=== PATIENT | male | born 1970 | race Caucasian/White ===

== ENCOUNTER 2016-06-24 10:15 | Emergency (ER) | payer MEDICARE, OTHER ==
[2016-06-24 10:22] VITALS: BP 135/78; PULSE 95; RESP 18; TEMP 97.7
[2016-06-24] MEDS ORDERED: PROPARACAINE 0.5% OPHTH DROPS 15 ML BTL LEFT EYE STA (10:32)
--- NOTE | 2016-06-24 11:21 | ED ---
General Adult HPI - General Chief complaint: Eye Problems Stated complaint: FB in eye Time Seen by Provider: 06/24/16 10:32 Source: patient, RN notes reviewed Mode of arrival: ambulatory Limitations: no limitations - History of Present Illness Initial comments: Patient is a 45-year-old male who presents emergency room today with a chief complaint of foreign body sensation to the left eye. He does admit that he was working yesterday. Denies any significant injury or trauma to time. Please that when he went home to shower he thinks something fell into his eye at that time did not feel until later in the night. He does admit to some irritation to the left eye can see a small black dot to the lateral aspect. He denies any visual changes. He states his tetanus is up-to-date. Patient denies any recent fever, chills, shortness of breath, chest pain, back pain, abdominal pain, nausea or vomiting, numbness or tingling, dysuria or hematuria, constipation or diarrhea, headaches or visual changes, or any other complaints. - Related Data Home Medications Medication Instructions Recorded Confirmed ALPRAZolam [Xanax] 0.5 mg PO DAILY PRN 06/24/16 06/24/16 HYDROcodone/APAP 10-325MG [[place] 1 tab PO Q6H PRN 06/24/16 06/24/16 10-325] Minocycline HCl [Minocin] 100 mg PO HS 06/24/16 06/24/16 Morphine Sulfate ER [Ms Contin 15 mg PO Q8H PRN 06/24/16 06/24/16 15Mg] Morphine Sulfate ER [Ms Contin 60 mg PO Q8H PRN 06/24/16 06/24/16 60Mg] Omeprazole [PriLOSEC] 20 mg PO AC-BRKFST 06/24/16 06/24/16 Ranitidine HCl [Zantac] 150 mg PO DAILY PRN 06/24/16 06/24/16 amLODIPine [Norvasc] 5 mg PO DAILY 06/24/16 06/24/16 Previous Rx's Medication Instructions Recorded Tobramycin 0.3% Ophth Soln [Tobrex 1 - 2 drop LEFT EYE QID 7 Days 06/24/16 0.3% Ophth Soln] Allergies Allergy/AdvReac Type Severity Reaction Status Date / Time chlorpromazine Allergy Unknown Verified 06/24/16 10:22 [From Thorazine] Review of Systems ROS Statement: Those systems with pertinent positive or pertinent negative responses have been documented in the HPI. ROS Other: All systems not noted in ROS Statement are negative. Past Medical History Past Medical History: Cancer Additional Past Medical History / Comment(s): bone ca History of Any Multi-Drug Resistant Organisms: None Reported Additional Past Surgical History / Comment(s): ribs removed/ lobectomy and muscles at ribs removed from ca Past Psychological History: Anxiety Smoking Status: Never smoker Past Alcohol Use History: Rare Past Drug Use History: None Reported General Exam - General Exam Comments Initial Comments: General: The patient is awake and alert, in no distress, and does not appear acutely ill. Eye: Pupils are equal, round and reactive to light, extra-ocular movements are intact. No nystagmus. There is normal conjunctiva bilaterally. No signs of icterus. Small foreign body located at the 3 o'clock position Ears, nose, mouth and throat: There are moist mucous membranes and no oral lesions. Neck: The neck is supple, there is no tenderness or JVD. Cardiovascular: There is a regular rate and rhythm. No murmur, rub or gallop is appreciated. Respiratory: Lungs are clear to auscultation, respirations are non-labored, breath sounds are equal. No wheezes, stridor, rales, or rhonchi. Musculoskeletal: Normal ROM, no tenderness. Strength 5/5. Sensation intact. Pulses equal bilaterally 2+. Neurological: A&O x 3. CN II-XII intact, There are no obvious motor or sensory deficits. Coordination appears grossly intact. Speech is normal. Skin: Skin is warm and dry and no rashes or lesions are noted. Psychiatric: Cooperative, appropriate mood & affect, normal judgment. Limitations: no limitations Course Vital Signs 06/24/16 10:19 Temperature 97.7 F Pulse Rate 95 Respiratory 18 Rate Blood Pressure 135/78 O2 Sat by Pulse 100 Oximetry Procedures - Procedures Initial comment: Patient's left eye was anesthetized locally with proparacaine. This did relieve his symptoms. Comes while used to remove foreign body which was able to take a small metallic object. Was rechecked with Wood's lamp and no foreign body remaining. Small uptake seen at the area of foreign body. Disposition Clinical Impression: Corneal foreign body Disposition: HOME SELF-CARE Condition: Good Instructions: Eye Foreign Body (ED) Additional Instructions: Please use eyedrops as prescribed. Please follow-up with processes chemical design engineer in 2 days of symptoms have not completely resolved as discussed. Please return here to emergency room if any symptoms increase or worsen or for any other concerns. Prescriptions: Tobramycin 0.3% Ophth Soln [Tobrex 0.3% Ophth Soln] 1 - 2 drop LEFT EYE QID 7 Days Time of Disposition: 11:20
[2016-06-24] MEDS ORDERED: PROPARACAINE 0.5% OPHTH DROPS 15 ML BTL ONE (13:40)
== END 2016-06-24 11:33 | disposition home or self-care (01) ==
LOC: EC 10:15
DX: T15.02XA Foreign body in cornea, left eye, initial encounter (principal); Z79.899 Other long term (current) drug therapy; Z88.8 Allergy status to other drugs, medicaments and biological substances; Z85.830 Personal history of malignant neoplasm of bone; Y92.002 Bathroom of unspecified non-institutional (private) residence as the place of occurrence of the external cause
CPT/HCPCS: 99283

== ENCOUNTER 2016-06-28 09:38 | Emergency (ER) | payer MEDICARE, OTHER ==
[2016-06-28 09:49] VITALS: BP 126/84; PULSE 108; RESP 20; TEMP 99.3
[2016-06-28] MEDS ORDERED: PROPARACAINE 0.5% OPHTH DROPS 15 ML BTL LEFT EYE STA (09:55)
--- NOTE | 2016-06-28 10:08 | ED ---
Eye Problem HPI - General Chief complaint: Eye Problems Stated complaint: Eye Problems Time Seen by Provider: 06/28/16 09:53 Source: patient, RN notes reviewed Mode of arrival: ambulatory Limitations: no limitations - History of Present Illness Initial comments: 45-year-old male presents emergency Department with chief complaint of left eye foreign body. Patient states that he woke up with this morning. Patient states he wants to know issues. Patient states he was just seen here 2 days ago for similar issues. Patient had foreign body removed at that time. Patient 's tetanus is up-to-date last year. Patient states that his eyes is very irritated denies any blurred vision. Patient states he has not been working around anything since he had his foreign-body removed a few days ago. Patient is currently using Tobrex eye drops. - Related Data Home Medications Medication Instructions Recorded Confirmed ALPRAZolam [Xanax] 0.5 mg PO DAILY PRN 06/24/16 06/24/16 HYDROcodone/APAP 10-325MG [[place] 1 tab PO Q6H PRN 06/24/16 06/24/16 10-325] Minocycline HCl [Minocin] 100 mg PO HS 06/24/16 06/24/16 Morphine Sulfate ER [Ms Contin 15 mg PO Q8H PRN 06/24/16 06/24/16 15Mg] Morphine Sulfate ER [Ms Contin 60 mg PO Q8H PRN 06/24/16 06/24/16 60Mg] Omeprazole [PriLOSEC] 20 mg PO AC-BRKFST 06/24/16 06/24/16 Ranitidine HCl [Zantac] 150 mg PO DAILY PRN 06/24/16 06/24/16 amLODIPine [Norvasc] 5 mg PO DAILY 06/24/16 06/24/16 Previous Rx's Medication Instructions Recorded Tobramycin 0.3% Ophth Soln [Tobrex 1 - 2 drop LEFT EYE QID 7 Days 06/24/16 0.3% Ophth Soln] Allergies Allergy/AdvReac Type Severity Reaction Status Date / Time chlorpromazine AdvReac Unknown Verified 06/24/16 11:20 [From Thorazine] Review of Systems ROS Statement: Those systems with pertinent positive or pertinent negative responses have been documented in the HPI. ROS Other: All systems not noted in ROS Statement are negative. Past Medical History Past Medical History: Cancer Additional Past Medical History / Comment(s): bone ca History of Any Multi-Drug Resistant Organisms: None Reported Additional Past Surgical History / Comment(s): ribs removed/ lobectomy and muscles at ribs removed from ca Past Psychological History: Anxiety Smoking Status: Never smoker Past Alcohol Use History: Rare Past Drug Use History: None Reported General Exam Limitations: no limitations General appearance: alert, in no apparent distress Head exam: Present: atraumatic, normocephalic, normal inspection Eye exam: Present: PERRL, EOMI, other (Patient had complete relief of his symptoms with 2 drops of proparacaine. Foreign body was removed using a sterile Q-tip. Florescien dye and Wood's lamp were used to evaluate the left eye there is no other corneal abrasions). Absent: normal appearance (large foreign body noted in the left I 3 o'clock position), scleral icterus, conjunctival injection, periorbital swelling ENT exam: Present: normal exam, normal oropharynx, mucous membranes moist Neck exam: Present: normal inspection. Absent: tenderness, meningismus, lymphadenopathy Respiratory exam: Present: normal lung sounds bilaterally. Absent: respiratory distress, wheezes, rales, rhonchi, stridor Cardiovascular Exam: Present: regular rate, normal rhythm, normal heart sounds. Absent: systolic murmur, diastolic murmur, rubs, gallop, clicks Course Vital Signs 06/28/16 09:46 Temperature 99.3 F Pulse Rate 108 H Respiratory 20 Rate Blood Pressure 126/84 O2 Sat by Pulse 98 Oximetry Procedures - Procedures Initial comment: Left eye foreign body to drops of proparacaine were used to anesthetize left eye Q-tip was used to remove the foreign body there is a small corneal defect in the 3 o'clock position patient tolerated well no compilations. Medical Decision Making - Medical Decision Making 45-year-old male had left I foreign body removed patient has a corneal abrasion. Patient will continue Tobrex eyedrops as he recently started these. Disposition Clinical Impression: Corneal foreign body Disposition: HOME SELF-CARE Condition: Stable Instructions: Eye Foreign Body (ED) Additional Instructions: Continue use of TobraDex eyedrops. Please return to the Emergency Department if symptoms worsen or any other concerns. Referrals: Ray Alarcon MD [Primary Care Provider] - 1-2 days Praveen Branch MD [STAFF PHYSICIAN] - 1-2 days Time of Disposition: 10:08
== END 2016-06-28 10:20 | disposition home or self-care (01) ==
LOC: EC 09:38
DX: T15.02XA Foreign body in cornea, left eye, initial encounter (principal); Z85.830 Personal history of malignant neoplasm of bone; Z88.8 Allergy status to other drugs, medicaments and biological substances; Z79.899 Other long term (current) drug therapy
CPT/HCPCS: 65220; 99283

== ENCOUNTER → 2017-08-01 | Outpatient (CLI) | payer MEDICARE ==
--- NOTE | 2017-08-01 14:34 | XR ---
EXAM TYPE: LUMBAR SPINE X RAY SERIES COMPARISON: NONE HISTORY: Back pain TECHNIQUE: 6 views are submitted including flexion-extension lateral views. FINDINGS: Alignment is anatomic. The pedicles are intact. The transverse processes are intact. There is no s pondylolysis or spondylolisthesis. There is facet arthropathy L5-S1 with multilevel moderate degener ative disc disease. Alignment appears stable in flexion and extension. IMPRESSION: 1. Multilevel degenerative disc disease.
--- NOTE | 2017-08-01 17:05 | MR ---
EXAMINATION TYPE: MR lumbar spine wo con DATE OF EXAM: 08/01/2017 COMPARISON: NONE HISTORY: LBP x several years, no trauma/surgery CONTRAST: 0 mL intravenous Gadavist. TECHNIQUE: Multiplanar, multisequence images of the lumbar spine were acquired. FINDINGS: L5-S1: Mild disc bulging is present. This has contact with the anterior thecal sac. Distortion is not evident. No nerve root compression is evident. No AP spinal canal stenosis is present. Minimal facet hypertrophy is present. Neural foramen are patent. Disc height is preserved. L4-L5: No significant disc bulge or disc herniation. No spinal canal stenosis. No foraminal stenosi s. Mild facet hypertrophy is present.. L3-L4: Right paracentral to right lateral disc bulge is present with mild anterior thecal sac ca kermit. This extends into the foramen. Stenosis is not evident. Tiny left paracentral to left lateral d isc bulge is also present. No AP spinal canal stenosis or foraminal stenosis is present. No spinal c anal stenosis. No foraminal stenosis. . L2-L3: No significant disc bulge or disc herniation. No spinal canal stenosis. No foraminal stenosi s. L1-L2: No significant disc bulge or disc herniation. No spinal canal stenosis. No foraminal stenosi s. T12-L1: No significant disc bulge or disc herniation. No spinal canal stenosis. No foraminal stenos is. IMPRESSION: 1. Moderate size focal disc bulging right paracentral to right lateral direction at the L3-4 level more s mild anterior thecal sac compression. Foraminal stenosis however is not evident. 2. Tiny left paracentral to left lateral disc bulge is present at the L3-4 level without thecal sac o r exiting nerve root compression. 3. Minimal disc bulge L5-S1 which has contact but no distortion of the anterior thecal sac.
== END ==
LOC: RADMRIMAIN 13:57
PROVIDERS: ATTEND Anesthesiology Pain Medicine
DX: M51.36 Other intervertebral disc degeneration, lumbar region (principal); M51.26 Other intervertebral disc displacement, lumbar region; Z79.891 Long term (current) use of opiate analgesic; M47.816 Spondylosis without myelopathy or radiculopathy, lumbar region
CPT/HCPCS: 72114; 72148

== ENCOUNTER 2018-01-22 11:01 | Emergency (ER) | payer MEDICARE ==
[2018-01-22] MEDS ORDERED: SODIUM CHLORIDE 0.9% 1,000 ML IV STA (11:41)
[2018-01-22 12:31] LABS: Basophils % (A) 0 %; Eosinophils # (A) 0.2 k/uL (0-0.7); Eosinophils % (A) 2 %; HCT 40.2 % (39.0-53.0); HGB 13.7 gm/dL (13.0-17.5); Lymphocytes # (A) 1.7 k/uL (1.0-4.8); Lymphocytes % (A) 15 %; MCH 30.4 pg (25.0-35.0); MCHC 34.1 g/dL (31.0-37.0); MCV 89.2 fL (80.0-100.0); Mean Platelet Volume 7.3; Monocytes # (A) 0.8 k/uL (0-1.0); Monocytes % (A) 7 %; Neutrophils # (A) 8.7 k/uL (1.3-7.7); Neutrophils % (A) 75 %; Platelet Count 327 k/uL (150-450); RDW 12.8 % (11.5-15.5); WBC 11.6 k/uL (3.8-10.6)
--- NOTE | 2018-01-22 12:31 | ED ---
General Adult HPI - General Chief complaint: Chest Pain Stated complaint: chest pain, SOB Source: patient, RN notes reviewed, old records reviewed Mode of arrival: wheelchair Limitations: no limitations - History of Present Illness Initial comments: 47-year-old male patient with past medical history of chronic lumbar back pain, Torres sarcoma at age 17 presents to ED with back pain and right-sided pleuritic chest pain. Patient states that last night at approximately 8 PM when he stood up and bent over and felt pain in thoracic spine. Patient states that this pain is similar to pain in his back before, however it is located higher than the typical lumbar back pain experiences. Patient woke up this morning with right-sided pleuritic chest pain. Patient is additionally having shortness of breath. Patient denies any substernal chest pain. Pt states that the pleuritic chest pain is located approximately 4 cm below the right nipple at the anterior axillary line. Patient denies recent travel, history of thromboembolism's, cardiac history, nausea vomiting diarrhea, diaphoresis. Systemic: Pt denies fatigue, myalgia, fever/chills, rash. Pt denies weakness, night sweats, weight loss. Neuro: Pt denies headache, visual disturbances, syncope or pre-syncope. Denies new onset paresthesias. HEENT: Pt denies ocular discharge or irritation, otalgia, rhinorrhea, pharyngitis or notable lymphadenopathy. Abdominal/GI: Pt denies abdominal pain, n/v/d. : Pt denies dysuria, burning w/ urination, frequency/urgency. Denies new onset urinary or bowel incontinence. MSK: Pt denies myalgia, loss of strength or function in extremities. - Related Data Home Medications Medication Instructions Recorded Confirmed Minocycline HCl [Minocin] 100 mg PO HS 06/24/16 01/22/18 Morphine Sulfate ER [Ms Contin 60 mg PO TID 06/24/16 01/22/18 60Mg] Omeprazole [PriLOSEC] 20 mg PO AC-BRKFST 06/24/16 01/22/18 amLODIPine [Norvasc] 5 mg PO DAILY 06/24/16 01/22/18 Cyclobenzaprine [Flexeril] 10 mg PO TID PRN 01/22/18 01/22/18 Hydrocodone/Acetaminophen [[place] 1 tab PO Q6H PRN 01/22/18 01/22/18 10325] Previous Rx's Medication Instructions Recorded Azithromycin [Zithromax Z-pack] 0 mg PO DIRECTED #6 tab 01/22/18 Allergies Allergy/AdvReac Type Severity Reaction Status Date / Time chlorpromazine AdvReac "FELT LIKE Verified 01/22/18 11:59 [From Thorazine] I WAS ON FIRE" Review of Systems ROS Statement: Those systems with pertinent positive or pertinent negative responses have been documented in the HPI. ROS Other: All systems not noted in ROS Statement are negative. Past Medical History Past Medical History: Cancer Additional Past Medical History / Comment(s): bone ca History of Any Multi-Drug Resistant Organisms: None Reported Additional Past Surgical History / Comment(s): ribs removed/ lobectomy and muscles at ribs removed from ca Past Psychological History: Anxiety Smoking Status: Never smoker Past Alcohol Use History: Rare Past Drug Use History: None Reported General Exam - General Exam Comments Initial Comments: Constitutional: NAD, AOX3, Pt has pleasant affect. HEENT: NC/AT, trachea midline, neck supple, no lymphadenopathy. Posterior pharynx non erythematous, without exudates. External ears appear normal, without discharge. Mucous membranes moist. Eyes PERRLA, EOM intact. There is no scleral icterus. No pallor noted. Cardiopulmonary: RRR, no murmurs, rubs or gallops, no JVD noted. Lungs CTAB in anterior and posterior soler. No peripheral edema. Abdominal exam: Abdomen soft and non-distended. Abdomen non-tender to palpation in all 4 quadrants. Bowel sounds active in LLQ. No hepatosplenomegaly. No ecchymosis, cullens and paez solis sign negative. Neuro: CN II-XII intact. No Focal deficit, no facial droop. MSK: Full active ROM in upper and lower extremities. Pt ambulatory. Full sensation in active and lower extremities. Radial pulse +2 bilaterally, posterior tibialis pulse +2 bilaterally. Homans sign negative bilaterally. Patient has mild midline thoracic spine tenderness. Psoas strength 5 out of 5, quadriceps strength 5 out of 5 both bilaterally. Patient heel toe walking intact. Patient denies new onset loss of bowel or bladder control. Achilles and patellar reflex 2 out of 4 bilaterally. 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 MSK exam displayed Full active ROM in upper and lower extremities. Pt ambulatory. Full sensation in active and lower extremities. Radial pulse +2 bilaterally, posterior tibialis pulse +2 bilaterally. Homans sign negative bilaterally. Patient has mild midline thoracic spine tenderness. Psoas strength 5 out of 5, quadriceps strength 5 out of 5 both bilaterally. Patient heel toe walking intact. Patient denies new onset loss of bowel or bladder control. Achilles and patellar reflex 2 out of 4 bilaterally. Cardiopulmonary exam was within normal limits, neuro exam was within normal limits. Abdominal and HEENT exam did not display acute pathology. Laboratory investigations were conducted. Troponin was negative, CBC showed slight leukocytosis, CMP was non-impressive. EKG was not concerning for ischemia. CT of abdomen and pelvis, chest and GI was conducted. A central pulmonary embolism was ruled out. Possible left lobe pneumonia was identified. Osseous structures of spine displayed multi level minor degenerative changes. Plain chest pain likely secondary to pleurisy secondary to the pneumonia. Patient to be placed on by mouth antibiotics discharge. Patient to follow-up with PCP 1-2 days. Patient to return to ED if any new signs or symptoms develop including shortness of breath, chest pain, worsening for chest pain, syncope or presyncope, hemoptysis, any other new symptoms. Pt is PERC negative. Case discussed with Dr. Lockhart. - Lab Data Result diagrams: 01/22/18 12:15 01/22/18 12:15 Lab Results 01/22/18 01/22/18 01/22/18 Range/Units 12:15 12:15 12:15 WBC 11.6 H (3.8-10.6) k/uL RBC 4.50 (4.30-5.90) m/uL Hgb 13.7 (13.0-17.5) gm/dL Hct 40.2 (39.0-53.0) % MCV 89.2 (80.0-100.0) fL MCH 30.4 (25.0-35.0) pg MCHC 34.1 (31.0-37.0) g/dL RDW 12.8 (11.5-15.5) % Plt Count 327 (150-450) k/uL Neutrophils % 75 % Lymphocytes % 15 % Monocytes % 7 % Eosinophils % 2 % Basophils % 0 % Neutrophils # 8.7 H (1.3-7.7) k/uL Lymphocytes # 1.7 (1.0-4.8) k/uL Monocytes # 0.8 (0-1.0) k/uL Eosinophils # 0.2 (0-0.7) k/uL Basophils # 0.0 (0-0.2) k/uL Sodium 141 (137-145) mmol/L Potassium 4.7 (3.5-5.1) mmol/L Chloride 102 (98-107) mmol/L Carbon Dioxide 30 (22-30) mmol/L Anion Gap 9 mmol/L BUN 11 (9-20) mg/dL Creatinine 0.65 L (0.66-1.25) mg/dL Est GFR (CKD-EPI)AfAm >90 (>60 ml/min/1.73 sqM) Est GFR (CKD-EPI)NonAf >90 (>60 ml/min/1.73 sqM) Glucose 99 (74-99) mg/dL Calcium 9.5 (8.4-10.2) mg/dL Total Bilirubin 0.5 (0.2-1.3) mg/dL AST 37 (17-59) U/L ALT 43 (21-72) U/L Alkaline Phosphatase 91 (38-126) U/L Troponin I <0.012 (0.000-0.034) ng/mL Total Protein 6.9 (6.3-8.2) g/dL Albumin 4.0 (3.5-5.0) g/dL - EKG Data -: EKG Interpreted by [place] EKG Comments: Ventricular rate 90, [place] interval 160, QRS 96, QT/QTC 366/447. Sinus rhythm with a PVC. No concerns for acute ischemia. Disposition Clinical Impression: Community acquired pneumonia, Pleurisy Disposition: HOME SELF-CARE Condition: Good Instructions: Community Acquired Pneumonia (ED) Additional Instructions: Patient to adhere to previously discussed treatment plan and will take medication(s) as directed. Patient to follow up with PCP in 1-2 days. Patient to return to ED if symptoms do not improve. Prescriptions: Azithromycin [Zithromax Z-pack] 0 mg PO DIRECTED #6 tab Is patient prescribed a controlled substance at d/c from ED?: No Referrals: Ray Alarcon MD [Primary Care Provider] - 1-2 days
[2018-01-22 12:39] LABS: ALT 43 U/L (21-72); AST 37 U/L (17-59); Alkaline Phosphatase 91 U/L (38-126); Anion Gap 9 mmol/L; Blood Urea Nitrogen 11 mg/dL (9-20); Calcium 9.5 mg/dL (8.4-10.2); Carbon Dioxide 30 mmol/L (22-30); Chloride 102 mmol/L (98-107); Glucose 99 mg/dL (74-99); Potassium 4.7 mmol/L (3.5-5.1); Sodium 141 mmol/L (137-145); Total Bilirubin 0.5 mg/dL (0.2-1.3); Total Protein 6.9 g/dL (6.3-8.2)
--- NOTE | 2018-01-22 13:11 | CT ---
EXAMINATION TYPE: CT abdomen pelvis w con DATE OF EXAM: 01/22/2018 COMPARISON: None HISTORY: Abdominal pain, SOB CT DLP: 1776.2 mGycm Automated exposure control for dose reduction was used. TECHNIQUE: Helical acquisition of images was performed from the lung bases through the pelvis. CONTRAST: Performed without Oral Contrast and with IV Contrast, patient injected with 78 mL of Isovue 370. FINDINGS: LUNG BASES: There is partial visualization of a trace left pleural effusion and left basilar airspace disease with air bronchograms and there is bronchiectasis. Calcified left pleural plaques are also s een at the left lung base. Very trace right pleural effusion is also incidentally noted. LIVER/GB: Hepatic parenchyma is diffusely hypoattenuated in comparison to that of the spleen, most co mmonly seen in hepatic steatosis. This finding limits evaluation for hepatic masses. No gross evidenc e of hepatic mass is seen. No intrahepatic biliary ductal dilatation. No cholelithiasis PANCREAS: No significant abnormality is seen. SPLEEN: There is abnormal morphology of the spleen which may represent splenosis from prior injury or may be physiologic. Spleen appears homogeneous however ADRENALS: Unremarkable KIDNEYS: No hydronephrosis of either kidney. Kidneys enhance symmetrically. Cortical thinning from pr ior injury is seen in the left upper pole most pronounced on the coronal images FREE AIR: No free air is visualized. RETROPERITONEAL ADENOPATHY: No greater than 1 cm short axis lymph nodes are seen within the abdomen or pelvis. REPRODUCTIVE ORGANS: No significant abnormality is seen URINARY BLADDER: No internal calculi. Unremarkable. OSSEOUS STRUCTURES: Minimal multilevel degenerative changes of the spine are noted. Healing posterio r rib fractures are partially visualized in the inferior lateral ribs. BOWEL: No inflammatory change surrounding the bowel. Mild amount retained colonic stool. Few scatter ed colonic diverticula are seen. No dilated large or small bowel OTHER: Left mid abdomen subcutaneous fat stranding may represent contusion or recent injection site. IMPRESSION: 1. LEFT BASILAR AIRSPACE DISEASE WITH AIR BRONCHOGRAMS CONCERNING FOR PNEUMONIA IN THE APPROPRIATE CL INICAL SETTING. HOWEVER BRONCHIECTASIS IS SEEN AND THEREFORE CHRONIC AIRSPACE DISEASE SUCH CHRONIC ATELECTASIS IS A CONSIDERATION. CALCIFIC PLEURAL PLAQUING INDICATES PRIOR ASBESTOS 6 EXPOSURE. 2. HEALING POSTERIOR LEFT LOWER LUNG RIB FRACTURES ARE PARTIALLY VISUALIZED.
--- NOTE | 2018-01-22 13:15 | CT ---
EXAMINATION TYPE: CT chest angio for PE DATE OF EXAM: 01/22/2018 COMPARISON: None HISTORY: Chest pain, SOB CT DLP: 328.3 mGycm Automated exposure control for dose reduction was used. CONTRAST: CT Chest for pulmonary embolism performed with with IV Contrast, patient injected with 78 mL of Isovu e 370. FINDINGS: LUNGS: There is volume loss and suggestion previous surgery involving the left hemithorax. Chronic ri b deformities are noted. Nonspecific pleural thickening is seen and there is some adjacent abnormalit y of the rib which likely is chronic. Calcification of the pleura noted as well as soft tissue calcif ication. Left lower lobe consolidation noted. Lucencies within the area of consolidation involving th e posterior left lung likely related to traction bronchiectasis. MEDIASTINUM: There is suboptimal enhancement pulmonary vasculature. No central pulmonary embolism. Ar tifact limits assessment of the secondary and distal branches. Cannot exclude pulmonary embolism the distal branches.. Low density lesion in the right thyroid is suggestive fibroid nodule. OTHER: Chronic appearing splenic lobulation suspected. IMPRESSION: 1. Limited exam due to suboptimal opacification the pulmonary artery demonstrates no diagnostic evide nce of central pulmonary embolism. Could not exclude a distal branch pulmonary embolism particularly on the left with this exam. 2. Postsurgical changes with an area of consolidation and volume loss involving the left hemithorax. Pleural and subcutaneous calcifications are noted and chronic rib deformities. Area of consolidation likely chronic but correlate clinically for infectious etiology.
[2018-01-22] MEDS ORDERED: MORPHINE SULFATE 4 MG/ML SYRINGE IV STA (13:45)
[2018-01-22 14:07] VITALS: RESP 18
[2018-01-22 15:51] VITALS: BP 111/76; PULSE 82
--- NOTE | 2018-01-22 15:53 | ED ---
Medical Decision Making - Medical Decision Making pt has ride home - Lab Data Result diagrams: 01/22/18 12:15 12 12:15 Lab Results 01/22/18 01/22/18 01/22/18 Range/Units 12:15 12:15 12:15 WBC 11.6 H (3.8-10.6) k/uL RBC 4.50 (4.30-5.90) m/uL Hgb 13.7 (13.0-17.5) gm/dL Hct 40.2 (39.0-53.0) % MCV 89.2 (80.0-100.0) fL MCH 30.4 (25.0-35.0) pg MCHC 34.1 (31.0-37.0) g/dL RDW 12.8 (11.5-15.5) % Plt Count 327 (150-450) k/uL Neutrophils % 75 % Lymphocytes % 15 % Monocytes % 7 % Eosinophils % 2 % Basophils % 0 % Neutrophils # 8.7 H (1.3-7.7) k/uL Lymphocytes # 1.7 (1.0-4.8) k/uL Monocytes # 0.8 (0-1.0) k/uL Eosinophils # 0.2 (0-0.7) k/uL Basophils # 0.0 (0-0.2) k/uL Sodium 141 (137-145) mmol/L Potassium 4.7 (3.5-5.1) mmol/L Chloride 102 (98-107) mmol/L Carbon Dioxide 30 (22-30) mmol/L Anion Gap 9 mmol/L BUN 11 (9-20) mg/dL Creatinine 0.65 L (0.66-1.25) mg/dL Est GFR (CKD-EPI)AfAm >90 (>60 ml/min/1.73 sqM) Est GFR (CKD-EPI)NonAf >90 (>60 ml/min/1.73 sqM) Glucose 99 (74-99) mg/dL Calcium 9.5 (8.4-10.2) mg/dL Total Bilirubin 0.5 (0.2-1.3) mg/dL AST 37 (17-59) U/L ALT 43 (21-72) U/L Alkaline Phosphatase 91 (38-126) U/L Troponin I <0.012 (0.000-0.034) ng/mL Total Protein 6.9 (6.3-8.2) g/dL Albumin 4.0 (3.5-5.0) g/dL Disposition Clinical Impression: Community acquired pneumonia, Pleurisy Disposition: HOME SELF-CARE Condition: Good Instructions: Community Acquired Pneumonia (ED) Additional Instructions: Patient to adhere to previously discussed treatment plan and will take medication(s) as directed. Patient to follow up with PCP in 1-2 days. Patient to return to ED if symptoms do not improve. Prescriptions: RX: Azithromycin [Zithromax Z-pack] 0 mg PO DIRECTED #6 tab Is patient prescribed a controlled substance at d/c from ED?: No Referrals: Ray Alarcon MD [Primary Care Provider] - 1-2 days
[2018-01-22 15:58] VITALS: TEMP 99.1
== END 2018-01-22 15:58 | disposition home or self-care (01) ==
LOC: EC 11:01
DX: J18.9 Pneumonia, unspecified organism (principal); Z85.830 Personal history of malignant neoplasm of bone; Z79.891 Long term (current) use of opiate analgesic; Z79.899 Other long term (current) drug therapy; Z88.8 Allergy status to other drugs, medicaments and biological substances; Z90.89 Acquired absence of other organs
CPT/HCPCS: 36415; 93005; 80053; 84484; 85025; 71275; 74177; 99285; 96374; 96361 ×2; J2270; Q9967

== ENCOUNTER 2019-12-15 13:39 | Emergency (ER) | payer MEDICARE ==
[2019-12-15 13:45] VITALS: BP 152/78; RESP 22; TEMP 98.5
[2019-12-15] MEDS ORDERED: HYDROmorphone 1 MG/ML 1 ML SYRINGE IM STA ×2 (13:52→14:47)
--- NOTE | 2019-12-15 13:58 | ED ---
General Adult HPI - General Chief complaint: Fall Stated complaint: back pain Time Seen by Provider: 12/15/19 13:46 Source: patient, family, RN notes reviewed Mode of arrival: wheelchair Limitations: no limitations - History of Present Illness Initial comments: Patient is a pleasant 49-year-old male presenting to the emergency Department with complaints of back discomfort. Onset of symptoms was 5 days ago. Patient fell a proximal he 5 steps off a ladder. Patient landed on his feet and then his buttocks and rolled to his back. Patient does have history of some chronic back problems. Patient has had some increased discomfort since that time. Patient is on chronic pain pills. 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 Patient is having some mild increase in discomfort at that location. No dyspnea. Patient did take some extra of his pain pills and now has run out. Patient did feel shaky and as if he was going through withdrawals last night. Patient will have his pain medication refilled on Monday.no incontinence or retention of bowel or bladder products. No leg weakness. No loss of sensation - Related Data Home Medications Medication Instructions Recorded Confirmed Minocycline HCl [Minocin] 100 mg PO HS 06/24/16 01/22/18 Morphine Sulfate ER [Ms Contin 60 mg PO TID 06/24/16 01/22/18 60Mg] Omeprazole [PriLOSEC] 20 mg PO AC-BRKFST 06/24/16 01/22/18 amLODIPine [Norvasc] 5 mg PO DAILY 06/24/16 01/22/18 Cyclobenzaprine [Flexeril] 10 mg PO TID PRN 01/22/18 01/22/18 Hydrocodone/Acetaminophen [[place] 1 tab PO Q6H PRN 01/22/18 01/22/18 10-325] Previous Rx's Medication Instructions Recorded Azithromycin [Zithromax Z-pack (6 0 mg PO DIRECTED #6 tab 01/22/18 tabs)] Allergies Allergy/AdvReac Type Severity Reaction Status Date / Time chlorpromazine AdvReac "FELT LIKE Verified 12/15/19 13:45 [From Thorazine] I WAS ON FIRE" Review of Systems ROS Statement: Those systems with pertinent positive or pertinent negative responses have been documented in the HPI. ROS Other: All systems not noted in ROS Statement are negative. Constitutional: Denies: fever Eyes: Denies: eye pain ENT: Denies: ear pain Respiratory: Denies: cough Cardiovascular: Denies: chest pain Endocrine: Denies: fatigue Gastrointestinal: Denies: abdominal pain Genitourinary: Denies: dysuria Musculoskeletal: Reports: as per HPI, back pain Skin: Denies: rash Neurological: Denies: weakness Past Medical History Past Medical History: Cancer, Hypertension Additional Past Medical History / Comment(s): bone ca History of Any Multi-Drug Resistant Organisms: None Reported Additional Past Surgical History / Comment(s): ribs removed/ lobectomy and muscles at ribs removed from ca Past Psychological History: Anxiety Smoking Status: Former smoker Past Alcohol Use History: Rare Past Drug Use History: None Reported General Exam Limitations: no limitations General appearance: alert, in no apparent distress Head exam: Present: normocephalic Eye exam: Present: normal appearance ENT exam: Present: normal oropharynx Neck exam: Present: normal inspection Respiratory exam: Present: normal lung sounds bilaterally, other (mild tenderness left lateral ribs at surgical incision sites, that are well-healed) Cardiovascular Exam: Present: regular rate, normal rhythm Expanded Peripheral pulses: 2+: Posterior Tibialis (R), Posterior Tibialis (L) GI/Abdominal exam: Present: soft. Absent: distended, tenderness, guarding, rebound, rigid Extremities exam: Present: normal inspection, full ROM. Absent: tenderness Back exam: Present: tenderness (moderate tenderness L4-L5 region) Neurological exam: Present: alert. Absent: motor sensory deficit Expanded Sensory exam: Upper Extremity Light Touch: Normal, Lower Extremity Light Touch: Normal Motor strength exam: RUE: 5, LUE: 5, RLE: 5, LLE: 5 Eye Response: (4) open spontaneously Motor Response: (6) obeys commands Verbal Response: (5) oriented Psychiatric exam: Present: normal affect, normal mood Skin exam: Present: normal color Course Vital Signs 12/15/19 13:42 Temperature 98.5 F Pulse Rate 120 H Respiratory 22 Rate Blood Pressure 152/78 O2 Sat by Pulse 99 Oximetry Medical Decision Making - Medical Decision Making Patient reevaluated. Patient and family updated. Patient would like additional medication prior to discharge. - Radiology Data Radiology results: report reviewed (CT lumbar spine Normal for age. No change.), image reviewed (chest x-ray shows multiple old left-sided rib fractures with deformity. Pleural diaphragmatic scarring left lung base with vo lume loss, unchanged compared to previous CT. No acute lung disease. No acute fracture.) Disposition Clinical Impression: Fall, Low back pain Disposition: HOME SELF-CARE Condition: Stable Instructions (If sedation given, give patient instructions): Back Pain (ED) Additional Instructions: please follow-up with primary care physician in the beginning of the week. Return for loss of control of bowel or bladder, leg weakness, loss of sensation, worsening or changing symptoms or other concerns. Is patient prescribed a controlled substance at d/c from ED?: No Referrals: Ray Alarcon MD [Primary Care Provider] - 1-2 days Time of Disposition: 14:48
--- NOTE | 2019-12-15 14:36 | XR ---
EXAMINATION TYPE: XR chest 2V DATE OF EXAM: 12/15/2019 COMPARISON: Chest CT scan 01/22/2018 HISTORY: Fall last week. Pain. TECHNIQUE: 2 views FINDINGS: There are surgical clips over the left axilla. There are multiple old left side rib fractur es. There is blunting of the left costophrenic angle and minimal pleural thickening on the left later al chest wall. The right lung is clear. Heart and mediastinum are deviated slightly to the left side. There is no heart failure. Heart size is normal. IMPRESSION: Multiple old left-sided rib fractures with deformity. Pleural diaphragmatic scarring at t he left lung base with some volume loss unchanged compared to old chest CT scan of 01/22/2018. No sign of acute lung disease. Normal heart. No acute fracture seen.
--- NOTE | 2019-12-15 14:42 | CT ---
EXAMINATION TYPE: CT lumbar spine wo con DATE OF EXAM: 12/15/2019 COMPARISON: CT scan 01/22/2018 HISTORY: Fall x1 week ago, low back pain. CT DLP: 1933.6 mGycm Automated exposure control for dose reduction was used. Images were obtained from the level of T12-S2 vertebra without contrast. FINDINGS: Lumbar vertebra have normal alignment. Disc spaces are normal. Posterior elements appear intact. Ther e is no subluxation. Facet joints are intact. There is no lumbar paraspinal mass. Sacroiliac joints a ppear intact. There is no evidence of focal bone destruction. IMPRESSION: Lumbar spine appears normal for age. No change.
[2019-12-15] MEDS ORDERED: ACET/COD 300 MG/30 MG STARTER PACK 6 TAB BTL PO STA (14:49)
[2019-12-15 15:08] VITALS: PULSE 110
== END 2019-12-15 15:08 | disposition home or self-care (01) ==
LOC: EC 13:39
DX: M54.5 Low back pain (principal); G89.29 Other chronic pain; I10 Essential (primary) hypertension; Z79.899 Other long term (current) drug therapy; Z88.8 Allergy status to other drugs, medicaments and biological substances; Z85.830 Personal history of malignant neoplasm of bone; Z90.2 Acquired absence of lung [part of]; Z87.891 Personal history of nicotine dependence; W11.XXXA Fall on and from ladder, initial encounter
CPT/HCPCS: 71046; 72131; 99284; 96372 ×2; J1170

== ENCOUNTER 2021-02-18 12:09 | Emergency (ER) | payer MEDICARE ==
[2021-02-18 12:35] VITALS: BP 136/85; RESP 18; TEMP 98.3
--- NOTE | 2021-02-18 13:31 | XR ---
EXAMINATION TYPE: XR ribs LT w pa chest xray DATE OF EXAM: 02/18/2021 COMPARISON: 12/15/2019 HISTORY: Pain TECHNIQUE: Frontal view of the chest and 4 views of the left ribs are submitted FINDINGS: There are surgical clips over the left axilla. There are multiple old left side rib fractur es. There is blunting of the left costophrenic angle and minimal pleural thickening on the left later al chest wall. Abnormal mineralization of the mid posterior left rib is stable from prior CT scan. Finding nonspecif ic. Left lower lobe consolidation noted. The right lung is clear. Heart and mediastinum are deviated slightly to the left side. There is no heart failure. Heart size is unchanged. IMPRESSION: 1. Stable appearing volume loss in the left hemithorax with postsurgical changes. 2. Left-sided consolidation and pleural effusion are stable. 3. Evidence of previous rib resection and fractures are noted. No definite acute displaced rib fractu re is seen. Given the marked deformities of the rib cage a subtle fracture would be difficult to excl ude. Correlate with point tenderness.
[2021-02-18] MEDS ORDERED: MORPHINE SULFATE 4 MG/ML SYRINGE IM STA (13:46)
--- NOTE | 2021-02-18 14:25 | ED ---
General Adult HPI - General Chief complaint: Chest Pain Stated complaint: Lt Rib Pain Time Seen by Provider: 02/18/21 13:29 Source: patient, RN notes reviewed, old records reviewed Mode of arrival: ambulatory - History of Present Illness Initial comments: 50-year-old male presenting with left-sided chest wall pain. Patient states it has been present for the past one week. Initially noted the pain after stepping out of his pickup truck. There was no specific trauma but this is worse with range of motion. 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 He does feel with intermittent pain there however this was worse. No cough or fever. No dyspnea. No central chest pain. - Related Data Home Medications Medication Instructions Recorded Confirmed Minocycline HCl [Minocin] 100 mg PO HS 06/24/16 01/22/18 Morphine Sulfate ER [Ms Contin 60 mg PO TID 06/24/16 01/22/18 60Mg] Omeprazole [PriLOSEC] 20 mg PO AC-BRKFST 06/24/16 01/22/18 amLODIPine [Norvasc] 5 mg PO DAILY 06/24/16 01/22/18 Cyclobenzaprine [Flexeril] 10 mg PO TID PRN 01/22/18 01/22/18 Hydrocodone/Acetaminophen [[place] 1 tab PO Q6H PRN 01/22/18 01/22/18 10-325] Previous Rx's Medication Instructions Recorded Azithromycin [Zithromax Z-pack (6 0 mg PO DIRECTED #6 tab 01/22/18 tabs)] Allergies Allergy/AdvReac Type Severity Reaction Status Date / Time chlorpromazine AdvReac "FELT LIKE Verified 02/18/21 12:35 [From Thorazine] I WAS ON FIRE" Review of Systems ROS Statement: Those systems with pertinent positive or pertinent negative responses have been documented in the HPI. ROS Other: All systems not noted in ROS Statement are negative. Past Medical History Past Medical History: Cancer, Hypertension Additional Past Medical History / Comment(s): bone ca History of Any Multi-Drug Resistant Organisms: None Reported Additional Past Surgical History / Comment(s): ribs removed/ lobectomy and muscles at ribs removed from ca Past Psychological History: Anxiety Smoking Status: Former smoker Past Alcohol Use History: Rare Past Drug Use History: None Reported General Exam General appearance: alert, in no apparent distress Head exam: Present: atraumatic, normocephalic Eye exam: Present: normal appearance, PERRL ENT exam: Present: normal exam Neck exam: Present: normal inspection. Absent: tenderness, meningismus Respiratory exam: Present: normal lung sounds bilaterally, chest wall tenderness (No ecchymosis, no crepitus, surgical scar well-healed.). Absent: respiratory distress, wheezes Cardiovascular Exam: Present: regular rate, normal rhythm GI/Abdominal exam: Present: soft. Absent: distended, tenderness Extremities exam: Present: normal inspection, normal capillary refill. Absent: pedal edema Neurological exam: Present: alert, oriented X3, CN II-XII intact. Absent: motor sensory deficit Psychiatric exam: Present: normal affect, normal mood Skin exam: Present: warm, dry, intact Course Vital Signs 02/18/21 02/18/21 02/18/21 12:30 13:45 14:56 Temperature 98.3 F 98.3 F Pulse Rate 98 94 Respiratory 18 18 18 Rate Blood Pressure 136/85 O2 Sat by Pulse 97 97 Oximetry Medical Decision Making - Medical Decision Making X-ray performed of the chest and ribs, there is no displaced rib fracture. Multiple old fractures and previous surgical changes. There is a consolidation and effusion which is stable and unchanged from prior. Patient reassured. He will follow with his primary care physician. He is already on multiple pain medications at home. He is given an incentive spirometer for clinical rib fracture. He will obtain CT imaging if symptoms persist. Disposition Clinical Impression: Rib fracture Disposition: HOME SELF-CARE Condition: Fair Instructions (If sedation given, give patient instructions): Rib Fracture (ED), Costochondritis (ED) Additional Instructions: Please follow up with her primary care physician. If symptoms persist I recommend you have CT imaging of the chest for further evaluation. Is patient prescribed a controlled substance at d/c from ED?: No Referrals: Ray Alarcon MD [Primary Care Provider] - 1-2 days Time of Disposition: 14:25
[2021-02-18 14:57] VITALS: PULSE 94
== END 2021-02-18 14:57 | disposition home or self-care (01) ==
LOC: EC 12:09
DX: S22.39XA Fracture of one rib, unspecified side, initial encounter for closed fracture (principal); I10 Essential (primary) hypertension; F41.9 Anxiety disorder, unspecified; Z87.891 Personal history of nicotine dependence; Z72.89 Other problems related to lifestyle
CPT/HCPCS: 71101; 99284; 96372; J2270

== ENCOUNTER 2021-09-12 12:02 | Emergency (ER) | payer MEDICARE ==
[2021-09-12 12:12] VITALS: TEMP 98.5
[2021-09-12] MEDS ORDERED: HYDROmorphone 1 MG/ML 1 ML SYRINGE IM STA ×2 (12:30→13:40)
--- NOTE | 2021-09-12 12:54 | ED ---
General Adult HPI - General Chief complaint: Back Pain/Injury Stated complaint: Back pain Time Seen by Provider: 09/12/21 12:14 Source: patient, RN notes reviewed, old records reviewed Mode of arrival: wheelchair Limitations: no limitations - History of Present Illness Initial comments: Patient Is a 51-year-old male with past medical history remarkable for Torres sarcoma status post radiation, chemo many years ago, missing ribs, chronic left shoulder, rib pain and chronic lower back pain who has a pain contract with his pain physician, Dr. Santiago presents emergency Department complaining of worsening pain. Was moving a hot water heater, when he began having worsening pain over the last week or so. Took extra doses of his oxycodone and [place] has run out for the last 2-3 days. He is having withdrawal symptoms at this time, diarrhea, sweats. No other acute complaints. Denies saddle anesthesias. Denies weakness in the lower extremities. Denies numbness in the lower extremities. Does have bilateral chronic paraspinal muscle tenderness to palpation of the lower lumbar spine which is unchanged from his chronic symptoms. States it is slightly worse but he is uncertain if this because he is not on his normal pain regimen. Also has chronic left shoulder pain which is unchanged. Presents for further evaluation at this time. Denies any incontinence or loss of bowels or urine. - Related Data Home Medications Medication Instructions Recorded Confirmed Minocycline HCl [Minocin] 100 mg PO HS 06/24/16 01/22/18 Morphine Sulfate ER [Ms Contin 60 mg PO TID 06/24/16 01/22/18 60Mg] Omeprazole [PriLOSEC] 20 mg PO AC-BRKFST 06/24/16 01/22/18 amLODIPine [Norvasc] 5 mg PO DAILY 06/24/16 01/22/18 Cyclobenzaprine [Flexeril] 10 mg PO TID PRN 01/22/18 01/22/18 Hydrocodone/Acetaminophen [[place] 1 tab PO Q6H PRN 01/22/18 01/22/18 10-325] Previous Rx's Medication Instructions Recorded Azithromycin [Zithromax Z-pack (6 0 mg PO DIRECTED #6 tab 01/22/18 tabs)] Lidocaine 5% Patch [Lidoderm 5% 1 patch TOPICAL DAILY PRN 7 Days 09/12/21 Patch] #7 patch Ondansetron Odt [Zofran Odt] 4 mg PO Q8HR PRN 2 Days #6 tab 09/12/21 methocarbamoL [Robaxin-750] 750 mg PO TID PRN 7 Days #21 tab 09/12/21 Allergies Allergy/AdvReac Type Severity Reaction Status Date / Time chlorpromazine AdvReac "FELT LIKE Verified 09/12/21 12:12 [From Thorazine] I WAS ON FIRE" Review of Systems ROS Statement: Those systems with pertinent positive or pertinent negative responses have been documented in the HPI. Review of Systems: CONST: Denies fever EYES: Denies blurry vision ENT: Denies nasal congestion C/V: Denies Chest pain RESP: Denies shortness of breath GI: Denies abdominal pain : Denies dysuria SKIN: Denies rash. MSK: Endorses chronic joint pain. NEURO: Denies headache ROS Other: All systems not noted in ROS Statement are negative. Past Medical History Past Medical History: Cancer, Hypertension Additional Past Medical History / Comment(s): bone ca History of Any Multi-Drug Resistant Organisms: None Reported Additional Past Surgical History / Comment(s): ribs removed/ lobectomy and muscles at ribs removed from ca Past Psychological History: Anxiety Smoking Status: Former smoker Past Alcohol Use History: Rare Past Drug Use History: None Reported General Exam - General Exam Comments Initial Comments: General: Appears in mild distress. HEAD: Normal with no signs of head trauma. EYES: PERRLA, EOMI, conjunctiva normal, no discharge. Pupils are 3 mm and equal bilaterally. ENT: Hearing grossly intact, normal oropharynx. RESPIRATORY: Clear breath sounds bilaterally. No wheezes, rales, or rhonchi. No increased work of breathing. No hypoxia. C/V: Regular rhythm. Mild tachycardia. S1 and S2 auscultated, no edema, peripheral pulses 2+ and intact throughout ABD: Abdomen is nondistended. Nontender EXT: Normal range of motion, no obvious deformity. Stable pelvis. No midline spinal tenderness palpation. Paraspinal muscle tenderness palpation in the lower lumbar spine. Chronic left shoulder tenderness to palpation in the posterior aspect. Unchanged. SKIN: No rashes or lesions observed on exposed skin. NEURO: Alert and oriented x 4. Cranial nerves II-XII intact. No focal sensory or strength deficits. No saddle anesthesias. No numbness of the bilateral lower extremities. Limitations: no limitations Course Vital Signs 09/12/21 12:07 Temperature 98.5 F Pulse Rate 114 H Respiratory 16 Rate Blood Pressure 145/84 O2 Sat by Pulse 100 Oximetry Medical Decision Making - Medical Decision Making Patient is a 51-year-old male who presents emergency Department with worsening pain after suspected injury. He is concerned that he may have a bulging disc in his mask. Has no red flag signs for cauda equina syndrome. He is scared of breaking his pain contract. I did discuss with him that I will not provide him with outpatient pain medications. He is due to refill them in a few days. He has not broken this contract previously. I reviewed his maps, and last fill date was last month on the . This is been consistent for the patient. I did offer him a CT of his lumbar spine which she accepted. He will be given a dose of opiate medication here in the department as well as non-controlled substances for pain control at home. He was in agreement with this plan. Vital signs within normal limits except for mild tachycardia which is slightly secondary to pain. Does not appear overly dehydrated. No other acute complaints. Patient's CT returned no acute findings. No signs of traumatic injury. I discussed with the patient. Exposed understanding. Will be given doses of pain medications prior to discharge. Understands not be prescribed any controlled substances. Will be given lidocaine patches, Robaxin, as well as Zofran prescriptions. Recommend follow-up with pain Dr. as well as PCP this week. He was in agreement this plan. We did discuss strict return precautions including any signs or red flags of cauda equina syndrome. He was in agreement this plan. I will provide the patient with a prescription for Robaxin, lidocaine patch, Zofran ODT. I instructed the patient to follow up with their PCP in the next 1-3 days.. I explained that the patient should return to the emergency department if they experience any worsening symptoms. Strict return precautions were discussed with the patient. The patient expressed understanding of these instructions. I answered all questions that the patient had. The patient was discharged home in fair condition with their prescriptions and follow up information. Disposition Clinical Impression: Low back strain, Chronic pain Disposition: HOME SELF-CARE Condition: Fair Instructions (If sedation given, give patient instructions): Acute Low Back Pain (ED) Prescriptions: Lidocaine 5% Patch [Lidoderm 5% Patch] 1 patch TOPICAL DAILY PRN 7 Days #7 patch PRN Reason: Pain methocarbamoL [Robaxin-750] 750 mg PO TID PRN 7 Days #21 tab PRN Reason: Pain Ondansetron Odt [Zofran Odt] 4 mg PO Q8HR PRN 2 Days #6 tab PRN Reason: Nausea Is patient prescribed a controlled substance at d/c from ED?: No Referrals: Ray Alarcon MD [Primary Care Provider] - 1-2 days Time of Disposition: 13:55
[2021-09-12] MEDS ORDERED: methocarbamoL 750 MG TAB PO STA (13:40)
[2021-09-12] MEDS ORDERED: LIDOCAINE 5% PATCH TOPICAL STA (13:40)
--- NOTE | 2021-09-12 13:46 | CT ---
EXAMINATION TYPE: CT lumbar spine wo con CT DLP: 1798.7 mGycm, Automated exposure control for dose reduction was used. DATE OF EXAM: 09/12/2021 1:10 PM COMPARISON: CT lumbar spine 12/14/2021. CLINICAL INDICATION:Male, 51 years old with history of back pain; TECHNIQUE: Multiple axial images were obtained from the midportion of T11 through the sacroiliac callie nts. Soft tissue and bone windows in coronal and sagittal planes were obtained and reviewed. FINDINGS: Alignment: There are 5 lumbar type vertebral bodies within normal alignment. Bone: No evidence of fracture is identified. Discs: T12-L1, L2-L3, L3-L4, L4-L5, and L5-S1: No spinal canal or neural foraminal stenosis is identified. Other: None IMPRESSION: Unremarkable examination without evidence of fracture or significant spinal canal stenosis. If there is continued clinical concern, consider MRI of the lumbar spine for further evaluation.
[2021-09-12] MEDS ORDERED: ACET/COD 300 MG/30 MG STARTER PACK 6 TAB BTL PO STA (13:58)
[2021-09-12 14:17] VITALS: BP 126/95; PULSE 100; RESP 18
== END 2021-09-12 14:14 | disposition home or self-care (01) ==
LOC: EC 12:02
DX: S39.012A Strain of muscle, fascia and tendon of lower back, initial encounter (principal); I10 Essential (primary) hypertension; Z87.891 Personal history of nicotine dependence; Z88.8 Allergy status to other drugs, medicaments and biological substances; Z79.899 Other long term (current) drug therapy; X58.XXXA Exposure to other specified factors, initial encounter
CPT/HCPCS: 72131; 99284; 96372; J1170

== ENCOUNTER 2022-01-11 14:49 | Emergency (ER) | payer MEDICARE ==
[2022-01-11 15:08] VITALS: BP 150/109; PULSE 127; RESP 20; TEMP 97.8
[2022-01-11] MEDS ORDERED: KETOROLAC 15 MG/ML 1 ML VIAL IVP STA (16:16)
--- NOTE | 2022-01-11 17:04 | ED ---
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 Patient states he's on Bul[place] and OxyContin and lately it has not helped. Patient did state to the triage nurse that he has thought of suicide but is not actually going to do and he just thought of it because the pain gets so bad. Patient does not want to talk to anybody from the psychiatric team because he states he is not suicidal and is just distraught because the pain medicine no longer works and he is a few weeks out from falling up with his pain clinic. Patient states she supposed the procedure to burn the nerves but again that is not for a couple weeks. Patient states he is really here today just to get some relief and no prescriptions. Patient states there is no recent trauma or injury. Patient states that the pain is not different than before is just a little more intense lately. He believes he is just getting used to the pain medicine. Patient denies any fever chills or cough per patient denies chest pain difficulty breathing. Patient denies any abdominal pain patient as nausea vomiting diarrhea. patient denies any problems urinating. - Related Data Home Medications Medication Instructions Recorded Confirmed Morphine Sulfate ER [Ms Contin 60 mg PO TID 06/24/16 01/11/22 60Mg] Cyclobenzaprine [Flexeril] 10 mg PO TID PRN 01/22/18 01/11/22 Hydrocodone/Acetaminophen [Bulger 1 tab PO Q6H PRN 01/22/18 01/11/22 10-325] Albuterol Inhaler [Ventolin Hfa 2 puff INHALATION RT-Q6H PRN 01/11/22 01/11/22 Inhaler] Morphine Sulfate ER [Ms Contin] 15 mg PO BID 01/11/22 01/11/22 diazePAM [Valium] 5 mg PO DAILY PRN 01/11/22 01/11/22 Allergies Allergy/AdvReac Type Severity Reaction Status Date / Time chlorpromazine AdvReac "FELT LIKE Verified 01/11/22 16:49 [From Thorazine] I WAS ON FIRE" Review of Systems ROS Statement: Those systems with pertinent positive or pertinent negative responses have been documented in the HPI. ROS Other: All systems not noted in ROS Statement are negative. Past Medical History Past Medical History: Cancer, Hypertension Additional Past Medical History / Comment(s): bone ca History of Any Multi-Drug Resistant Organisms: None Reported Additional Past Surgical History / Comment(s): ribs removed/ lobectomy and muscles at ribs removed from ca Past Psychological History: Anxiety Smoking Status: Former smoker Past Alcohol Use History: Rare Past Drug Use History: None Reported General Exam - General Exam Comments Initial Comments: GENERAL Patient is well-developed and well-nourished. Patient is in moderate distress. EYES Patient's pupils are equal and round. Extraocular motion is intact SKIN Unremarkable CHEST Patient's examination of the right side of his chest does appear to be a gross deficit in the middle of his chest where he states he has had ribs removed. NEURO The patient is alert and oriented 3 PYSCH Patient has normal interpersonal interactions. MUSCULOSKELETAL Patient had tenderness along the ribs above and below the defect. Patient was able to move all 4 extremities without problem. Limitations: no limitations Course Vital Signs 01/11/22 15:03 Temperature 97.8 F Pulse Rate 127 H Respiratory 20 Rate Blood Pressure 150/109 O2 Sat by Pulse 99 Oximetry Medical Decision Making - Medical Decision Making I interpreted EKG shows sinus tachycardia at 107 bpm MA interval 162 QRS is 98 QT interval 347 QTC is 409. Patient's EKG shows no ST segment elevation or depression. I spoke with him about suicide at least 3 occasions and he denied having any desire to harm himself but he did admit that he does occasionally think about it with the pain being so bad. Patient received Toradol and droperidol and was resting comfortably when I went back into the room he stated his back pain had not improved much at all just a l ittle bit. I gave the patient 5 of Valium IV and I will back in the room after that he was feeling considerably better and was requesting to be discharged home. Patient again denied having any suicidal desires. Patient states he just was saying that he is so much pain he thinks about it but he would never do it and he is safe to go home. Patient states his is coming to get up. Disposition Clinical Impression: Chronic back pain Disposition: HOME SELF-CARE Condition: Good Instructions (If sedation given, give patient instructions): Chronic Back Pain (DC) Is patient prescribed a controlled substance at d/c from ED?: No Referrals: Ray Alarcon MD [Primary Care Provider] - 1-2 days Time of Disposition: 18:43
== END 2022-01-11 19:09 | disposition home or self-care (01) ==
LOC: EC 14:49
DX: M54.9 Dorsalgia, unspecified (principal); G89.29 Other chronic pain; I10 Essential (primary) hypertension; F41.9 Anxiety disorder, unspecified; Z87.891 Personal history of nicotine dependence; Z79.899 Other long term (current) drug therapy; Z88.4 Allergy status to anesthetic agent
CPT/HCPCS: 93005; 99283; 96374; 96375 ×2; J3360; J1885; J1790

== ENCOUNTER 2023-07-10 10:52 | Emergency (ER) | payer MEDICARE ==
--- NOTE | 2023-07-10 11:41 | ED ---
Back Pain HPI - General Source: patient, RN notes reviewed Mode of arrival: ambulatory Limitations: no limitations <Venessa Castellon - Last Filed: 07/10/23 11:40> - General Source: patient, RN notes reviewed Mode of arrival: ambulatory Limitations: no limitations <Deven Pardo - Last Filed: 07/10/23 13:33> - General Stated Complaint: Rib pain, back pain Time Seen by Provider: 07/10/23 11:40 - History of Present Illness Initial Comments: Quick note: Patient [id number] male presenting to the ER with a chief complaint of pain. Patient has a history of bone cancer and has had left sided ribs removed years ago. States for the past week he has been having increasing pain. He had an outpatient CT done and is following up with pain management on Monday. He states his pain has been uncontrolled and he normally takes [place]. No injuries or traumas. Denies any shortness of breath or chest pain. (Venessa Castellon) 52-year-old male presents emergency department chief complaint of left-sided pain. Patient states that he has a history of sarcoma. Patient states that he had surgery 20+ years ago. Patient states that he is on chronic pain meds states that sometimes he has worsening symptoms he states over the last few weeks she has had worsening symptoms and he did have an outpatient CT ordered by his pain management. Patient states that they have an appointment this Monday but states the pain has not been controlled by his normal [place] the last few nights. Denies any traumas no rashes no other complaints. (Deven Pardo) - Related Data Home Medications Medication Instructions Recorded Confirmed Morphine Sulfate ER [Ms Contin 60 mg PO TID 06/24/16 01/11/22 60Mg] Cyclobenzaprine [Flexeril] 10 mg PO TID PRN 01/22/18 01/11/22 Hydrocodone/Acetaminophen [[place] 1 tab PO Q6H PRN 01/22/18 01/11/22 10-325] Albuterol Inhaler [Ventolin Hfa 2 puff INHALATION RT-Q6H PRN 01/11/22 01/11/22 Inhaler] Morphine Sulfate ER [Ms Contin] 15 mg PO BID 01/11/22 01/11/22 diazePAM [Valium] 5 mg PO DAILY PRN 01/11/22 01/11/22 Allergies Allergy/AdvReac Type Severity Reaction Status Date / Time chlorpromazine AdvReac "FELT LIKE Verified 07/10/23 11:43 [From Thorazine] I WAS ON FIRE" Review of Systems ROS Other: All systems not noted in ROS Statement are negative. <Venessa Castellon - Last Filed: 07/10/23 11:40> ROS Other: All systems not noted in ROS Statement are negative. <Deven Pardo - Last Filed: 07/10/23 13:33> ROS Statement: Those systems with pertinent positive or pertinent negative responses have been documented in the HPI. Past Medical History Past Medical History: Cancer, Hypertension Additional Past Medical History / Comment(s): bone ca History of Any Multi-Drug Resistant Organisms: None Reported Additional Past Surgical History / Comment(s): ribs removed/ lobectomy and muscles at ribs removed from ca Past Psychological History: Anxiety Smoking Status: Former smoker Past Alcohol Use History: Rare Past Drug Use History: None Reported <Venessa Castellon - Last Filed: 07/10/23 11:40> General Exam <Venessa Castellon - Last Filed: 07/10/23 11:40> Limitations: no limitations General appearance: alert, in no apparent distress Head exam: Present: atraumatic, normocephalic, normal inspection Eye exam: Present: normal appearance, PERRL, EOMI. Absent: scleral icterus, conjunctival injection, periorbital swelling ENT exam: Present: normal exam, mucous membranes moist Neck exam: Present: normal inspection. Absent: tenderness, meningismus, lymphadenopathy Respiratory exam: Present: normal lung sounds bilaterally, chest wall tenderness. Absent: respiratory distress, wheezes, rales, rhonchi, stridor Cardiovascular Exam: Present: regular rate, normal rhythm, normal heart sounds. Absent: systolic murmur, diastolic murmur, rubs, gallop, clicks <Deven Pardo - Last Filed: 07/10/23 13:33> - General Exam Comments Initial Comments: Visual Physical Exam Vital signs reviewed General: Well-appearing, nontoxic, no acute distress. Head: Normocephalic, atraumatic Eyes: PERRLA, EOMI ENT: Airway patent Chest: Nonlabored breathing Skin: No visual rash, normal skin tone Neuro: Alert and oriented 3 Musculoskeletal: No gross abnormalities (Venessa Castellon) Course Vital Signs 07/10/23 11:40 Temperature 98.8 F Pulse Rate 112 H Respiratory 20 Rate Blood Pressure 153/109 O2 Sat by Pulse 99 Oximetry Medical Decision Making <Venessa Castellon - Last Filed: 07/10/23 11:40> <Deven Pardo Justin - Last Filed: 07/10/23 13:33> - Medical Decision Making I performed the quick note portion of this chart. Electronically signed by Venessa Castellon PA-C (Venessa Castellon) Was pt. sent in by a medical professional or institution (IRA Nguyen, AUTOMOTIVE SERVICE MANAGER, urgent care, hospital, or senior care...) When possible be specific @ -No Did you speak to anyone other than the patient for history (EMS, parent, family, police, friend...)? What history was obtained from this source @ -No Did you review nursing and triage notes (agree or disagree)? Why? @ -I reviewed and agree with nursing and triage notes Were old charts reviewed (outside hosp., previous admission, EMS record, old EKG, old radiological studies, urgent care reports/EKG's, senior care records)? Report findings @ -Reviewed patient CT from [facility] Differential Diagnosis (chest pain, altered mental status, abdominal pain women, abdominal pain men, vaginal bleeding, weakness, fever, dyspnea, syncope, headache, dizziness, GI bleed, back pain, seizure, CVA, palpatations, mental health, musculoskeletal)? @ -Chronic pain, rib pain, back pain EKG interpreted by me (3pts min.). @ -None X-rays interpreted by me (1pt min.). @ -None done CT interpreted by me (1pt min.). @ -None done U/S interpreted by me (1pt. min.). @ -None done What testing was considered but not performed or refused? (CT, X-rays, U/S, labs)? Why? @ -None What meds were considered but not given or refused? Why? @ -None Did you discuss the management of the patient with other professionals (professionals i.e. RIA Nguyen, AUTOMOTIVE SERVICE MANAGER, lab, RT, psych nurse, social service assistant, memorial marker designer, teacher, infantry officer, case resource manager)? Give summary @ -No Was smoking cessation discussed for >3mins.? @ -No Was critical care preformed (if so, how long)? @ -No Were there social determinants of health that impacted care today? How? (Homelessness, low income, unemployed, alcoholism, drug addiction, transportation, low edu. Level, literacy, decrease access to med. care, [facility], rehab)? @ -No Was there de-escalation of care discussed even if they declined (Discuss DNR or withdrawal of care, Hospice)? DNR status @ -No What co-morbidities impacted this encounter? (DM, HTN, Smoking, COPD, CAD, Cancer, CVA, ARF, Chemo, Hep., AIDS, mental health diagnosis, sleep apnea, morbid obesity)? @ -Chronic pain Was patient admitted / discharged? Hospital course, mention meds given and route, prescriptions, significant lab abnormalities, going to OR and other pertinent info. @ -Discharge patient provided analgesics in emergency department. Patient will be discharged with follow-up with his chronic pain management. Undiagnosed new problem with uncertain prognosis? @ -No Drug Therapy requiring intensive monitoring for toxicity (Heparin, Nitro, Insulin, Cardizem)? @ -No Were any procedures done? @ -No Diagnosis/symptom? @ -Rib pain, chronic pain Acute, or Chronic, or Acute on Chronic? @ -Acute on chronic Uncomplicated (without systemic symptoms) or Complicated (systemic symptoms)? @ -Uncomplicated Side effects of treatment? @ -No Exacerbation, Progression, or Severe Exacerbation? @ -No Poses a threat to life or bodily function? How? (Chest pain, [place], PA, pneumonia, PE, COPD, DKA, ARF, appy, cholecystitis, CVA, Diverticulitis, Homicidal, Suicidal, threat to staff... and all critical care pts) @ -No (Deven Pardo) Disposition <Venessa Castellon - Last Filed: 07/10/23 11:40> Is patient prescribed a controlled substance at d/c from ED?: No Time of Disposition: 13:33 <Deven Pardo - Last Filed: 07/10/23 13:33> Clinical Impression: Rib pain, Chest wall pain Disposition: HOME SELF-CARE Condition: Stable Instructions (If sedation given, give patient instructions): Chest Wall Pain (ED) Additional Instructions: Please return to the Emergency Department if symptoms worsen or any other concerns. Referrals: Ray Alarcon MD [Primary Care Provider] - 1-2 days
[2023-07-10] MEDS: HYDROmorphone 1 MG/ML 1 ML SYRINGE IM STA (12:31)
[2023-07-10] MEDS: oxyCODONE-APAP 5-325MG 1 EACH TAB PO STA (13:56)
[2023-07-10 14:21] VITALS: BP 147/92; PULSE 101; RESP 18; TEMP 98.1
== END 2023-07-10 13:58 | disposition home or self-care (01) ==
LOC: EC 10:52
DX: R07.81 Pleurodynia (principal); G89.29 Other chronic pain; Z87.891 Personal history of nicotine dependence; Z88.8 Allergy status to other drugs, medicaments and biological substances
CPT/HCPCS: 99284; 96372; J1170